=== PATIENT | male | born 1990 | race Caucasian/White ===

== ENCOUNTER 2021-01-02 20:03 | Emergency (ER) | payer OTHER, SELFPAY ==
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
[2021-01-02 21:26] VITALS: BP 121/57; PULSE 83; RESP 18; TEMP 36.4; O2SAT 97; BMI 41.3
[2021-01-02 23:21] VITALS: BP 132/72; PULSE 74; RESP 17; O2SAT 97
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
[2021-01-03] MEDS: Ibuprofen 600 MG TABLET PO (00:29)
== END 2021-01-03 00:48 | disposition home or self-care (01) ==
LOC: HO.ED 23:41
PROVIDERS: Emergency Provider Emergency Medicine
DX: S39.012A Strain of muscle, fascia and tendon of lower back, initial encounter (principal); S16.1XXA Strain of muscle, fascia and tendon at neck level, initial encounter; V43.52XA Car driver injured in collision with other type car in traffic accident, initial encounter; Y93.89 Activity, other specified; Y92.414 Local residential or business street as the place of occurrence of the external cause; Y99.8 Other external cause status
CPT/HCPCS: 72100; 72125; 99284